=== PATIENT | female | born 1970 | race Caucasian/White ===

== ENCOUNTER 2017-05-18 20:04 | Emergency (ER) | payer OTHER ==
[~2017-05-18] VITALS: Ht 162.6 cm; Wt 72.9 kg
[~2017-05-18 20:04] MED LIST: IBUP-1050 PO; PRENTAB26 PO
[2017-05-18 20:06] VITALS: TEMP 36.6; Ht 162.6 cm; Wt 72.9 kg
[2017-05-18] MEDS ORDERED: KETOROLAC TROMETHAMINE 30 MG/ML VIAL IV STA ×2 (20:31→21:18)
[2017-05-18] MEDS ORDERED: ONDANSETRON INJ 2 MG/ML 2 ML VIAL IV STA (20:31)
[2017-05-18] MEDS ORDERED: SODIUM CHLORIDE 0.9% 1000ML 1,000 ML IV STA (20:31)
[2017-05-18] MEDS ORDERED: FENTANYL CITRATE INJ 50 MCG/1 ML 2 ML VIAL IV STA (20:31)
--- NOTE | 2017-05-18 20:32 | EMERGENCY ROOM VISIT NOTE ---
History Report prepared by Tomasa: Arnel James Under the Supervision of: Dr. Robin George M.D. First contact with patient: 20:15 Chief Complaint: BACK PAIN Stated Complaint: SEVERE BACK PAIN, VOMITING History of Present Illness The patient is a 47 year old female who presents to the Emergency Room with complaints of constant, left, lower, back pain beginning 2 hours ago. She currently rates her discomfort an 8/10 in severity. The patient states she was driving when her symptoms began. She reports she was fine all day and did not have complications. The patient notes she then began vomiting, and she vomited 4 -5 times. She states she has been overcoming a bad cough and congestion over the past few weeks. The patient denies pain with urination, blood with urination , a history of kidney stones, taking medication for her discomfort, and coughing during the onset. She reports she only takes control daily. Source of History: patient Onset: 2 hours ago Position: back (lower, left) Symptom Intensity: 8/10 Timing: constant Associated Symptoms: + vomiting (4-5 times) Note: Denies: pain with urination, blood with urination, coughing during onset Review of Systems See HPI for pertinent positives and negatives. A total of ten systems were reviewed and were otherwise negative. Past Medical & Surgical Medical Problems: (1) No Known Active Medical Problems Family History Patient reports no known family medical history. Social History Smoking Status: Never Smoker Marital Status: Occupation Status: employed Current/Historical Medications Scheduled Control Pills ( Control Pills), 1 TAB PO DAILY Ondasetron Odt (Zofran Odt), 4 MG SL Q6H Tamsulosin Hcl (Flomax), 1 CAP PO DAILY Scheduled PRN Ibuprofen Tab (Motrin), 800 MG PO Q8H PRN for Pain Oxycodone Ir (Roxicodone Ir), 1-2 TAB PO Q4H PRN for Severe Pain Allergies Coded Allergies: No Known Allergies (Verified Allergy, Unknown, 09/15/06) Physical Exam Vital Signs Date Time Temp Pulse Resp B/P (MAP) Pulse Ox O2 Delivery O2 Flow Rate FiO2 05/18/17 23:44 92 16 140/81 97 Room Air 05/18/17 21:55 94 16 132/82 95 Room Air 05/18/17 20:06 36.6 90 20 137/89 100 Room Air Physical Exam GENERAL: Awake, alert, fatigued, uncomfortable-appearing, in no distress HENT: Normocephalic, atraumatic. Oropharynx has dry mucous membranes, otherwise unremarkable. EYES: Normal conjunctiva. Sclera non-icteric. NECK: Supple. No nuchal rigidity. FROM. No JVD. RESPIRATORY: Clear to auscultation. CARDIAC: Regular rate, normal rhythm. Extremities warm and well perfused. Pulses equal. ABDOMEN: Soft, non-distended. No tenderness to palpation. No rebound or guarding. No masses. RECTAL: Deferred. MUSCULOSKELETAL: Chest examination reveals no tenderness. The back is symmetrical on inspection without obvious abnormality. Left flank tenderness, no peritoneal signs. There is no CVA tenderness to palpation. No joint edema. LOWER EXTREMITIES: Calves are equal size bilaterally and non-tender. No edema. No discoloration. NEURO: Normal sensorium. No sensory or motor deficits noted. SKIN: No rash or jaundice noted. Medical Decision & Procedures ER Provider Diagnostic Interpretation: Radiology results as stated below per my review and radiologist interpretation: ABDOMEN AND PELVIS CT WITH IV CONTRAST CT DOSE: 391.44 mGy.cm HISTORY: left flank pain TECHNIQUE: Multiaxial CT images of the abdomen and pelvis were performed following the use of intravenous contrast. A dose lowering technique was utilized adhering to the principles of ALARA. COMPARISON STUDY: None. FINDINGS: The lung bases are clear. No pneumoperitoneum. No pneumatosis. No fractures within the visualized osseous structures. There is an indeterminate 1.6 cm hypodense lesion within the liver. This favors a cyst or hemangioma. The gallbladder, spleen, adrenal glands, and pancreas are unremarkable. No retroperitoneal lymphadenopathy. There is a circumaortic left renal vein. Multiple stones within the lower pole the left kidney with the largest measuring 6 mm. Possible 5 mm stone within the upper pole the right kidney. Mild left hydronephrosis secondary to an obstructing 8 mm stone at the proximal left ureter on image 189. Normal bladder, uterus, and ovaries. Colonic diverticulosis. No bowel wall thickening or obstruction. Normal appendix. IMPRESSION: 1. An 8 mm stone within the proximal left ureter resulting in mild left hydronephrosis. 2. Bilateral nephrolithiasis. Electronically signed by: Scott Allan M.D. 05/18/2017 10:37 PM Dictated Date/Time: 05/18/2017 10:32 PM Laboratory Results 05/18/17 20:56 Red Blood Count 4.71, Mean Corpuscular Volume 92.1, Mean Corpuscular Hemoglobin 31.0, Mean Corpuscular Hemoglobin Concent 33.6, Mean Platelet Volume 9.8, Neutrophils (%) (Auto) 70.8, Lymphocytes (%) (Auto) 19.3, Monocytes (%) (Auto) 8.1, Eosinophils (%) (Auto) 1.2, Basophils (%) (Auto) 0.3, Neutrophils # (Auto) 7.90, Lymphocytes # (Auto) 2.15, Monocytes # (Auto) 0.90, Eosinophils # (Auto) 0.13, Basophils # (Auto) 0.03 05/18/17 20:56 Test 05/18/17 20:20 05/18/17 20:56 Urine Color YELLOW Urine Appearance CLEAR (CLEAR) Urine pH 5.0 (4.5-7.5) Urine Specific [place] 1.013 (1.000-1.030) Urine Protein NEG (NEG) Urine Glucose (UA) NEG (NEG) Urine Ketones NEG (NEG) Urine Occult Blood 2+ (NEG) Urine Nitrite NEG (NEG) Urine Bilirubin NEG (NEG) Urine Urobilinogen NEG (NEG) Urine Leukocyte Esterase NEG (NEG) Urine WBC (Auto) 1-5 /hpf (0-5) Urine RBC (Auto) 10-30 /hpf (0-4) Urine Hyaline Casts (Auto) 1-5 /lpf (0-5) Urine Epithelial Cells (Auto) 20-30 /lpf (0-5) Urine Bacteria (Auto) NEG (NEG) White Blood Count 11.14 K/uL (4.8-10.8) Red Blood Count 4.71 M/uL (4.2-5.4) Hemoglobin 14.6 g/dL (12.0-16.0) Hematocrit 43.4 % (37-47) Mean Corpuscular Volume 92.1 fL (80-100) Mean Corpuscular Hemoglobin 31.0 pg (25-34) Mean Corpuscular Hemoglobin Concent 33.6 g/dl (32-36) Platelet Count 341 K/uL (130-400) Mean Platelet Volume 9.8 fL (7.4-10.4) Neutrophils (%) (Auto) 70.8 % Lymphocytes (%) (Auto) 19.3 % Monocytes (%) (Auto) 8.1 % Eosinophils (%) (Auto) 1.2 % Basophils (%) (Auto) 0.3 % Neutrophils # (Auto) 7.90 K/uL (1.4-6.5) Lymphocytes # (Auto) 2.15 K/uL (1.2-3.4) Monocytes # (Auto) 0.90 K/uL (0.11-0.59) Eosinophils # (Auto) 0.13 K/uL (0-0.5) Basophils # (Auto) 0.03 K/uL (0-0.2) RDW Standard Deviation 44.4 fL (36.4-46.3) RDW Coefficient of Variation 13.1 % (11.5-14.5) Immature Granulocyte % (Auto) 0.3 % Immature Granulocyte # (Auto) 0.03 K/uL (0.00-0.02) Anion Gap 7.0 mmol/L (3-11) Est Creatinine Clear Calc Drug Dose 74.0 ml/min Estimated GFR () 85.9 Estimated GFR (Non- 74.2 BUN/Creatinine Ratio 12.0 (10-20) Calcium Level 8.9 mg/dl (8.5-10.1) Total Bilirubin 0.5 mg/dl (0.2-1) Direct Bilirubin 0.1 mg/dl (0-0.2) Aspartate Amino Transf (AST/SGOT) 16 U/L (15-37) Alanine Aminotransferase (ALT/SGPT) 18 U/L (12-78) Alkaline Phosphatase 68 U/L (45-117) Total Protein 8.6 gm/dl (6.4-8.2) Albumin 4.0 gm/dl (3.4-5.0) Lipase 227 U/L (73-393) Laboratory results reviewed by me Medications Administered Medications (Trade) Dose Ordered Sig/Joshua Route Start Time Stop Time Status Last Admin Dose Admin Sodium Chloride 1,000 ml @ 999 mls/hr Q1H1M STAT IV 05/18/17 20:31 05/18/17 21:31 DC 05/18/17 20:58 999 MLS/HR Ketorolac Tromethamine (Toradol Inj) 15 mg NOW STAT IV 05/18/17 20:31 05/18/17 20:35 DC 05/18/17 20:58 15 MG Fentanyl Citrate (Fentanyl Inj) 50 mcg NOW STAT IV 05/18/17 20:31 05/18/17 20:35 DC 05/18/17 20:58 50 MCG Ondansetron HCl (Zofran Inj) 4 mg NOW STAT IV 05/18/17 20:31 05/18/17 20:35 DC 05/18/17 20:57 4 MG Morphine Sulfate (MoRPHine SULFATE INJ) 4 mg NOW STAT IV 05/18/17 21:18 05/18/17 21:19 DC 05/18/17 21:26 4 MG Ketorolac Tromethamine (Toradol Inj) 15 mg NOW STAT IV 05/18/17 21:18 05/18/17 21:19 DC 05/18/17 21:26 15 MG Oxycodone HCl (Roxicodone Immediate Rel Tab) 10 mg NOW STAT PO 05/18/17 23:42 05/18/17 23:44 DC 05/18/17 23:51 10 MG Acetaminophen (Tylenol Tab) 1,000 mg NOW STAT PO 05/18/17 23:42 05/18/17 23:44 DC 05/18/17 23:50 1,000 MG Tamsulosin HCl (Flomax Cap) 0.4 mg NOW ONCE PO 05/18/17 23:45 05/18/17 23:46 DC 05/18/17 23:50 0.4 MG ED Course 2025: The patient was evaluated in room B07. A complete history and physical exam was performed. 2307: I reevaluated the patient and discussed her current exam findings and lab results. Medical Decision I reviewed the patient's past medical history, medications, and the nursing notes as described above. Differential diagnosis: Etiologies such as renal colic, appendicitis, diverticulitis, mesenteric ischemia, aortic pathology, infections, inflammatory bowel disease, PUD, biliary pathology, UTI, as well as others were entertained. The patient is a 47 y/o woman who presents to the emergency department with left flank pain of acute on set per HPI. On arrival the patient is in uncomfortable but in NAD, AFVSS. Mid ttp of left flank. CT demonstrates 8mm obstructing ureteral stone with mild hydronephrosis. WBC 11. UA negative for infection. Patient with pain improved and manageable after IVF, Toradol, fentanyl, morphine. Findings d/w patient and the likelihood that this sized stone will not pass spontaneously. However, given that her pain was under control and no evidence of infected stone, it is reasonable to manage outpatient. Patient was agreeable with this plan. CM assisting to arrange prompt urology f/u. Plan for analgesia, Flomax, antiemetics. Medication Reconcilliation Current Medication List: was personally reviewed by me Blood Pressure Screening Patient's blood pressure: Normal blood pressure Blood pressure disposition: Did not require urgent referral Impression Primary Impression: Ureterolithiasis Additional Impression: Hydronephrosis due to obstruction of ureter Scribe Attestation The scribe's documentation has been prepared under my direction and personally reviewed by me in its entirety. I confirm that the note above accurately reflects all work, treatment, procedures, and medical decision making performed by me. Departure Information Dispostion Home / Self-Care Prescriptions Tamsulosin Hcl (FLOMAX) 0.4 Mg Cap 1 CAP PO DAILY for 7 Days, #7 CAP Prov: Robin George M.D. 05/18/17 Ondasetron Odt (ZOFRAN ODT) 4 Mg Tab 4 MG SL Q6H for Nausea, #10 TAB Prov: Robin George M.D. 05/18/17 Oxycodone Ir (Roxicodone Ir) 5 Mg Tab 1-2 TAB PO Q4H Y for Severe Pain, #15 TAB Prov: Robin George M.D. 05/18/17 Ibuprofen Tab (MOTRIN) 800 Mg Tab 800 MG PO Q8H Y for Pain for 7 Days, #21 TAB Prov: Robin George M.D. 05/18/17 Referrals Keyonna Perez D.O. (PCP) Juany Easley MD Patient Instructions ED Stone Renal W Colic, My [facility] Additional Instructions Please follow up with urology, Dr. Easley, in the next 1-3 days for re- evaluation. You were found to have an 8mm kidney stone. Otherwise, your exam, lab results, and CT scan did not show signs of an emergent condition at this time. Acetaminophen or ibuprofen for pain and fevers as needed. Zofran as needed for nausea. Oxycodone for breakthrough pain. Flomax to help with stone passage as directed. Drink plenty of fluids to ensure hydration. Return to the emergency department for worsening symptoms as described in the accompanying instructions. Problem Qualifiers
[2017-05-18] MEDS ORDERED: RANI150T3 PO (20:37)
[2017-05-18] MEDS ORDERED: BCPILLS PO (20:37)
[2017-05-18] MEDS ORDERED: OPTIRAY 320 IV PRN (20:45)
[2017-05-18 21:07] LABS: BASO % 0.3 %; BASO ABS # 0.03 K/uL (0-0.2); EOS % 1.2 %; EOS ABS # 0.13 K/uL (0-0.5); HEMATOCRIT 43.4 % (37-47); HEMOGLOBIN 14.6 g/dL (12.0-16.0); IG# 0.03 K/uL (0.00-0.02); LYMPH % 19.3 %; LYMPH ABS # 2.15 K/uL (1.2-3.4); MEAN CELL VOLUME 92.1 fL (80-100); MEAN CORPUSCULAR HGB CONC 33.6 g/dl (32-36); MEAN PLATELET VOLUME 9.8 fL (7.4-10.4); MONO % 8.1 %; NEUT % 70.8 %; PLATELET COUNT 341 K/uL (130-400); RED CELL DISTRIBUTION WIDTH CV 13.1 % (11.5-14.5); RED CELL DISTRIBUTION WIDTH SD 44.4 fL (36.4-46.3); WHITE BLOOD COUNT 11.14 K/uL (4.8-10.8)
[2017-05-18] MEDS ORDERED: MoRPHine SULFATE 4 MG/ML 1 ML CARP\\VIAL IV STA (21:18)
[2017-05-18 21:28] LABS: CALCIUM 8.9 mg/dl (8.5-10.1); CREATININE 0.92 mg/dl (0.60-1.20); POTASSIUM 3.9 mmol/L (3.5-5.1)
[2017-05-18 21:31] LABS: TOTAL PROTEIN 8.6 gm/dl (6.4-8.2)
--- NOTE | 2017-05-18 22:38 | DIAGNOSTIC IMAGING REPORT ---
ABDOMEN AND PELVIS CT WITH IV CONTRAST CT DOSE: 391.44 mGy.cm HISTORY: left flank pain TECHNIQUE: Multiaxial CT images of the abdomen and pelvis were performed following the use of intravenous contrast. A dose lowering technique was utilized adhering to the principles of ALARA. COMPARISON STUDY: None. FINDINGS: The lung bases are clear. No pneumoperitoneum. No pneumatosis. No fractures within the visualized osseous structures. There is an indeterminate 1.6 cm hypodense lesion within the liver. This favors a cyst or hemangioma. The gallbladder, spleen, adrenal glands, and pancreas are unremarkable. No retroperitoneal lymphadenopathy. There is a circumaortic left renal vein. Multiple stones within the lower pole the left kidney with the largest measuring 6 mm. Possible 5 mm stone within the upper pole the right kidney. Mild left hydronephrosis secondary to an obstructing 8 mm stone at the proximal left ureter on image 189. Normal bladder, uterus, and ovaries. Colonic diverticulosis. No bowel wall thickening or obstruction. Normal appendix. IMPRESSION: 1. An 8 mm stone within the proximal left ureter resulting in mild left hydronephrosis. 2. Bilateral nephrolithiasis. Electronically signed by: Scott Allan M.D. 05/18/2017 10:37 PM Dictated Date/Time: 05/18/2017 10:32 PM
[2017-05-18] MEDS ORDERED: ACETAMINOPHEN 500 MG TAB PO STA (23:42)
[2017-05-18] MEDS ORDERED: OXYCODONE HCL IR 5 MG TAB (IMMEDIATE RELEASE) PO STA (23:42)
[2017-05-18 23:44] VITALS: BP 140/81; PULSE 92; O2SAT 97
[2017-05-18] MEDS ORDERED: OXYCODONE IR HOME PACK PO ONE (23:45)
[2017-05-18] MEDS ORDERED: ONDANSETRON HOME PACK 4MG OD TAB PO ONE (23:45)
[2017-05-18] MEDS ORDERED: TAMSULOSIN HCL 0.4 MG CAP PO ONE (23:45)
[2017-05-18] MEDS ORDERED: ONDA4TAB10 SL (23:49)
[2017-05-18] MEDS ORDERED: IBUP-1451 PO (23:49)
[2017-05-18] MEDS ORDERED: OXYC1TAB3 PO (23:49)
[2017-05-18] MEDS ORDERED: TAMS0.4C38 PO (23:49)
== END 2017-05-18 23:58 | disposition home or self-care (01) ==
LOC: C.EDB 20:05
DX: N13.2 Hydronephrosis with renal and ureteral calculous obstruction (principal); R05 Cough; R09.81 Nasal congestion; Z79.3 Long term (current) use of hormonal contraceptives

== ENCOUNTER → 2017-05-22 | Outpatient (CLI) | payer OTHER ==
[~2017-05-22] MED LIST changes: +BCPILLS PO; -IBUP-1050 PO; +IBUP-1451 PO; +NITR1CAP33 PO; +ONDA4TAB10 SL; +ONDA4TAB46 PO; +OXYC1TAB3 PO; +OXYC7.5T65 PO; -PRENTAB26 PO; +TAMS0.4C38 PO
--- NOTE | 2017-05-22 17:30 | DIAGNOSTIC IMAGING REPORT ---
CHEST 2 VIEWS ROUTINE, KUB HISTORY: 47 years-old Female N20.0 Nephrolithiasis follow-up study in a patient with acute left flank pain and nephrolithiasis. COMPARISON: CT abdomen and pelvis 05/18/2017 TECHNIQUE: PA and lateral views of the chest with KUB radiograph FINDINGS: CHEST: Cardiomediastinal and hilar silhouettes are within normal limits. There is no pneumothorax, pleural effusion, focal airspace consolidation or overt pulmonary edema. Bones of the chest appear grossly intact. KUB: Renal shadows are partially obscured by bowel gas. Left-sided nephrolithiasis is redemonstrated. 9 mm calculus of the proximal left ureter has migrated slightly inferiorly, now the level of the left transverse process L4, previously just below the transverse process of L3. Additionally, there appears to be an additional 4 mm calculus just proximally. Calcifications of the pelvis suggest phleboliths. Bowel gas pattern is nonobstructive. Moderate stool volume of the right hemicolon. No fracture. No pneumatosis or pneumoperitoneum identified. IMPRESSION: 1. Slight caudal migration of the 9 mm left ureteral calculus with adjacent proximal 4 mm calcification suggesting a possible second ureteral calculus which is new from comparison CT. 2. Left-sided nephrolithiasis redemonstrated. 3. No acute process of the chest. The above report was generated using voice recognition software. It may contain grammatical, syntax or spelling errors. Electronically signed by: Joshua Vinson M.D. 05/22/2017 5:29 PM Dictated Date/Time: 05/22/2017 5:25 PM
== END | disposition home or self-care (01) ==
LOC: C.RAD 16:01
PROVIDERS: ATTEND Urology
DX: N20.2 Calculus of kidney with calculus of ureter (principal)

== ENCOUNTER → 2017-05-25 | Outpatient (CLI) | payer OTHER ==
[~2017-05-25] MED LIST changes: -IBUP-1451 PO; -ONDA4TAB10 SL; -OXYC1TAB3 PO; -TAMS0.4C38 PO
--- NOTE | 2017-05-25 20:01 | DIAGNOSTIC IMAGING REPORT ---
KUB CLINICAL HISTORY: 47 years-old Female presenting with N20.0 Nephrolithiasis. TECHNIQUE: Single supine view of the abdomen was obtained. COMPARISON: 05/22/2017. FINDINGS: Moderate stool burden throughout the colon. This degrades evaluation for renal calculi. Unchanged position of the 8 mm calculus along the course of the proximal to mid left ureter at the level of the left L4 transverse process. The previously noted adjacent calculus is not immediately apparent. Redemonstration of significant left renal calculi burden. More limited calculi noted in the right kidney. Stable distribution of pelvic phleboliths area Osseous structures normal. IMPRESSION: 1. Stable position of the 8 mm proximal to mid left ureteral calculus at the level of L4. The adjacent smaller calculus is not visualized on the current exam. 2. Bilateral nephrolithiasis. 3. Moderate stool burden suggest constipation. Electronically signed by: Olman Cox M.D. 05/25/2017 8:00 PM Dictated Date/Time: 05/25/2017 7:58 PM
== END | disposition home or self-care (01) ==
LOC: C.RAD 18:07
PROVIDERS: ATTEND Urology
DX: N20.2 Calculus of kidney with calculus of ureter (principal)

== ENCOUNTER → 2017-05-26 | Day surgery (SDC) | payer OTHER ==
[2017-05-24 15:04] VITALS: Ht 162.6 cm; Wt 71.4 kg
[~2017-05-26] VITALS: Ht 162.6 cm; Wt 71.4 kg
[~2017-05-26] MED LIST changes: +ATROPINE SULFATE 0.1 MG/ML 5ML SYR IV PRN; +CIPROFLOXACIN 400MG / 200ML D5W ONE; +DEXAMETHASONE SOD INJ 4 MG/ML VIAL ONE; +EpHEDrine SULFATE INJ 50 MG/ML AMP IV PRN; +FENTANYL CITRATE INJ 50 MCG/1 ML 2 ML VIAL IV PRN; +FENTANYL CITRATE INJ 50 MCG/1 ML 2 ML VIAL ONE; +HYDROmorphone INJ 0.5 MG/0.5 ML SYR IV PRN; +LACTATED RINGER'S 1000ML 1,000 ML IV SCH; +LIDOCAINE HCL 2% 2 ML VIAL (20MG/ML) ONE; +MIDAZOLAM HCL 1 MG/ML 2ML VIAL ONE; +ONDANSETRON INJ 2 MG/ML 2 ML VIAL IV PRN; +ONDANSETRON INJ 2 MG/ML 2 ML VIAL ONE; +PHENYLEPHRINE 100MCG/ML 5ML SYR IV PRN; +PROMETHAZINE HCL INJ 12.5 MG in SODIUM CHLORIDE 0.9% 50ML 50 ML IV PRN; +PROPOFOL IV EMULSION 10 MG/ML 20 ML VIAL IV ONE
--- NOTE | 2017-05-26 07:04 | History & Physical Bridge - SC ---
H&P Re-Evaluation Bridge Note: I have examined the patient, reviewed the History & Physical and in the interval since the performance of the History & Physical I have noted the following changes of clinical significance: No changes noted
--- NOTE | 2017-05-26 07:40 | [facility] Post Operative Brief Note ---
Immediate Operative Summary Operative Date May 26, 2017. Pre-Operative Diagnosis Left Ureteral Calculi Post-Operative Diagnosis Same Procedure(s) Performed Left Extracorpeal Shock Wave Lithotripsy Surgeon Dr. Antoni Hampton In Service Coordinator Surgeon(s) None Estimated Blood Loss 0 Findings Consistent with Post-Op Diagnosis Specimens None Anesthesia Type General
--- NOTE | 2017-05-26 07:43 | Discharge Instructions-SurgCtr ---
Discharge Instructions Date of Service May 26, 2017. Visit Reason for Visit: Stones Discharge Discharge Diagnosis / Problem: post op eswl Discharge Goals Goal(s): Decrease discomfort, Improve function, Increase independence Activity Recommendations Activity Limitations: per Instructions/Follow-up section (no driving on narcotics) Anesthesia . Post Anesthesia Instructions: If you have had General Anesthesia or IV Sedation: * Do not drive today. * Resume driving when surgeon permits. * Do not make important decisions or sign legal documents today. * Call surgeon for: 1. Temperature elevations greater than 101 degrees F. 2. Uncontrollable pain. 3. Excessive bleeding. 4. Persistent nausea and vomiting. 5. Medication intolerance (nausea, vomiting or rash). * For nausea and vomiting use only clear liquids such as: tea, soda, bouillon until nausea subsides, then gradually increase diet as tolerated. * If you have any concerns or questions, call your surgeon's office. If physician is unavailable and it is an emergency, call 911 or go to the nearest emergency room. . Diet Recommendations Home Diet: resume previous diet Procedures Procedures Performed: Left Extracorpeal Shock Wave Lithotripsy Pending Studies Studies pending at discharge: no Medical Emergencies . Who to Call and When: Medical Emergencies: If at any time you feel your situation is an emergency, please call 911 immediately. . Non-Emergent Contact Non-Emergency issues call your: Urologist Call Non-Emergent contact if: temperature is above 101 . . "Provider Documentation" section prepared by Dharmesh Hampton. .
--- NOTE | 2017-05-26 09:07 | Anesthesia Progress Nt - [facility] ---
Anesthesia Post Op Note Date & Time May 26, 2017 at 09:06 Vital Signs Pain Intensity: 0 Vital Signs Past 12 Hours Date Time Temp Pulse Resp B/P (MAP) Pulse Ox O2 Delivery O2 Flow Rate FiO2 05/26/17 08:41 36.8 74 16 132/93 (106) 98 Room Air 05/26/17 08:32 36.8 05/26/17 08:19 Room Air 05/26/17 08:01 36.7 87 12 139/96 100 Diffusion Mask 6 05/26/17 06:32 37.2 98 16 125/87 (100) 98 Room Air Notes Mental Status: alert / awake / arousable, participated in evaluation Pt Amnestic to Procedure: Yes Nausea / Vomiting: adequately controlled Pain: adequately controlled Airway Patency, RR, SpO2: stable & adequate BP & HR: stable & adequate Hydration State: stable & adequate Anesthetic Complications: no major complications apparent Awake, doing well, no complaints, VSS.
[2017-05-26 09:11] VITALS: BP 145/89; PULSE 84; O2SAT 100
--- NOTE | 2017-05-26 10:35 | OPERATIVE REPORT ---
DATE OF OPERATION: 05/26/2017 PROCEDURE PERFORMED: Left ureteral ESWL. SURGEON: Dr. Dharmesh Hampton ANESTHESIA: General. INDICATIONS: The patient is a 47-year-old female who has had ongoing pain from a mid left ureteral stone. The patient elected to have ESWL. DESCRIPTION OF THE PROCEDURE: She was taken to the operating room where she was placed in supine position, given general anesthesia. The stone was localized in 2-views and then she received 3000 shocks, half of them at level 6, the rest of them, the majority at level 5. The stone did appear to be fragmented so as the stone appeared to migrate somewhat down the ureter, the were adjusted. There was clearly spreading out of the stone, although it was unclear how big the largest fragments were in the distal part of the ureter. It did only spread out over 1-2 cm area. At the end of the procedure, the patient was transferred to the recovery room in stable condition. I attest to the content of the Intraoperative Record and any orders documented therein. Any exception s are noted below.
== END | disposition home or self-care (01) ==
LOC: X.SURG 06:21
PROVIDERS: ATTEND Urology
DX: N20.0 Calculus of kidney (principal); Z82.49 Family history of ischemic heart disease and other diseases of the circulatory system; Z82.3 Family history of stroke

== ENCOUNTER → 2017-06-12 | Outpatient (CLI) | payer OTHER ==
[~2017-06-12] MED LIST changes: -ATROPINE SULFATE 0.1 MG/ML 5ML SYR IV PRN; -CIPROFLOXACIN 400MG / 200ML D5W ONE; -DEXAMETHASONE SOD INJ 4 MG/ML VIAL ONE; -EpHEDrine SULFATE INJ 50 MG/ML AMP IV PRN; -FENTANYL CITRATE INJ 50 MCG/1 ML 2 ML VIAL IV PRN; -FENTANYL CITRATE INJ 50 MCG/1 ML 2 ML VIAL ONE; -HYDROmorphone INJ 0.5 MG/0.5 ML SYR IV PRN; -LACTATED RINGER'S 1000ML 1,000 ML IV SCH; -LIDOCAINE HCL 2% 2 ML VIAL (20MG/ML) ONE; -MIDAZOLAM HCL 1 MG/ML 2ML VIAL ONE; -ONDANSETRON INJ 2 MG/ML 2 ML VIAL IV PRN; -ONDANSETRON INJ 2 MG/ML 2 ML VIAL ONE; -PHENYLEPHRINE 100MCG/ML 5ML SYR IV PRN; -PROMETHAZINE HCL INJ 12.5 MG in SODIUM CHLORIDE 0.9% 50ML 50 ML IV PRN; -PROPOFOL IV EMULSION 10 MG/ML 20 ML VIAL IV ONE
--- NOTE | 2017-06-12 18:46 | DIAGNOSTIC IMAGING REPORT ---
KUB CLINICAL HISTORY: N20.0 [id number] nephrocalcinosis COMPARISON STUDY: 05/25/2017 FINDINGS: Several small cyst calcific fragments mid aspect right kidney unchanged. Interval decrease in number of small fragmented calcifications of the left kidney with several identified in the lower pole. The left vertebral 8 mm calcification previous described is not identified currently. This may pass. Several pelvic vascular calcifications unchanged. IMPRESSION: 1. Interval passage of the 8 mm mid left ureteral calculus. 2. Interval decrease in number of several left renal fragmented calcifications. 3. Unchanging right renal calcifications. The above report was generated using voice recognition software. It may contain grammatical, syntax or spelling errors. Electronically signed by: Christophe Snyder M.D. 06/12/2017 6:45 PM Dictated Date/Time: 06/12/2017 6:43 PM
== END | disposition home or self-care (01) ==
LOC: C.RAD 18:04
PROVIDERS: ATTEND Urology
DX: N20.2 Calculus of kidney with calculus of ureter (principal)